=== PATIENT | male | born 1985 | race African-American/Black ===

== ENCOUNTER 2025-01-26 21:31 | Emergency (ER) | payer BC ==
[~2025-01-26] VITALS: Ht 188 cm; Wt 132.0 kg
[2025-01-26] MEDS: PREDNISONE 20MG TABLET PO SCH (22:24)
[2025-01-26] MEDS: ACETAMINOPHEN 325MG TABLET PO SCH (22:26)
[2025-01-26 22:45] VITALS: PULSE 78; RESP 18; O2SAT 98
[2025-01-26] MEDS: IPRATROPIUM BROMIDE (0.02%) 0.5MG/2.5ML NEB HHN SCH (22:46)
[2025-01-26] MEDS: ALBUTEROL (0.5%) 2.5MG/0.5ML NEB HHN SCH (22:46)
[2025-01-26 23:39] LABS: BASOPHILS % 0.4 % (0.0-2.0); EOSINOPHILS % 1.3 % (0.0-5.0); HEMATOCRIT. 37.4 % (42.0-52.0); HEMOGLOBIN. 11.8 g/dL (14.0-18.0); LYMPHOCYTES % 18.5 % (20.0-50.0); MEAN PLATELET VOLUME 8.1 fl (7.4-10.4); MONOCYTES % 3.9 % (2.0-8.0); NEUTROPHILS % 75.9 % (40.0-76.0); PLATELET 221 x1000/uL (130-400); RED BLOOD CELL COUNT 5.11 mill/uL (4.7-6.1); RED CELL DISTRIBUTION WIDTH 16.4 % (11.6-14.6)
[2025-01-26 23:53] LABS: CREATININE 1.2 mg/dL (0.6-1.3); UREA NITROGEN BLOOD 9 mg/dL (9-23)
[2025-01-26 23:54] LABS: TROPONIN I HIGH SENSITIVITY 4 ng/L (3.0-53)
[2025-01-27] MEDS ORDERED: ACET-2708 MT (00:11)
[2025-01-27] MEDS ORDERED: P20 MT (00:11)
[2025-01-27] MEDS ORDERED: ALBU90AE INH (00:11)
[2025-01-27 00:35] VITALS: BP 163/96; PULSE 72; RESP 12; TEMP 37; O2SAT 95
== END 2025-01-27 00:35 | disposition home or self-care (01) ==
LOC: ER 21:31
DX: J45.901 Unspecified asthma with (acute) exacerbation (principal); I10 Essential (primary) hypertension
CPT/HCPCS: 80048; 80320; 83880; 85025; 84484; 36415; 71045; 94640; 93005; 99285; J7512; Z7610 ×4; 94664; G0480